=== PATIENT | female | born 1985 | race Caucasian/White ===

== ENCOUNTER 2017-03-22 21:36 | Emergency (ER) | payer MEDICAID, OTHER ==
[~2017-03-22] VITALS: Ht 157.5 cm; Wt 52.2 kg
[~2017-03-22 21:36] MED LIST: AZAT50TA18 PO; HYDR200T PO
--- NOTE | 2017-03-22 22:15 | NUR ---
DR. GARCIA AT BEDSIDE FOR EVAL
[2017-03-22] MEDS ORDERED: IV NORMAL SALINE 1000 ML BAG IV ONE (22:30)
[2017-03-22 23:02] LABS: CREATININE 0.7 mg/dL (0.6-1.3); POTASSIUM 3.4 mmol/L (3.5-5.1)
[2017-03-22 23:07] LABS: BASOPHILS % (AUTO) 0.7 % (0.0-2.0); EOSINOPHILS # (AUTO) 0.1 K/uL (0.0-0.7); EOSINOPHILS % (AUTO) 1.1 % (0.0-7.0); HEMATOCRIT 32.3 % (37-47); HEMOGLOBIN 10.8 G/DL (12.0-16.0); MEAN CORPUSCULAR HEMOGLOBIN 28.8 UUG (27.0-31.0); MEAN CORPUSCULAR HGB CONC 33 g/dL (32.0-37.0); MEAN CORPUSCULAR VOLUME 86.7 FL (81.0-99.0); MONOCYTES # (AUTO) 0.5 K/UL (0.1-1.30); MONOCYTES % (AUTO) 9.3 % (0.0-11.0); NEUTROPHILS # (AUTO) 3.5 K/UL (1.8-8.9); NEUTROPHILS % (AUTO) 68.9 % (38.5-71.5); PLATELET COUNT (AUTO) 220 K/UL (150-450); RED BLOOD CELL COUNT(AUTO) 3.73 MIL/UL (4.2-5.4); WHITE BLOOD COUNT (AUTO) 5.1 K/UL (4.0-11.2)
[2017-03-22 23:19] LABS: BILIRUBIN,DIRECT 0.1 mg/dL (0.0-0.2); BILIRUBIN,TOTAL 0.2 mg/dL (0.2-1.0); TOTAL PROTEIN, SERUM 7.8 g/dL (6.4-8.2)
[2017-03-23] MEDS ORDERED: IV NORMAL SALINE 250 ML IV ONE (00:09)
[2017-03-23] MEDS ORDERED: IOHEXOL 350 100 ML INFUS..BTL ONE (00:09)
--- NOTE | 2017-03-23 01:24 | NUR ---
Patient discharged to home in stable conditon. Written and verbal after care instructions given. Patient verbalizes understanding of instructions. PATIENT LEFT WITH STABLE GAIT. IV DC'D, CATHETER INTACT.
[2017-03-23 01:25] VITALS: BP 99/68
== END 2017-03-23 01:25 | disposition home or self-care (01) ==
LOC: ER 21:37
DX: R07.9 Chest pain, unspecified (principal); M35.1 Other overlap syndromes; M79.7 Fibromyalgia; F17.200 Nicotine dependence, unspecified, uncomplicated; F10.10 Alcohol abuse, uncomplicated; Z88.1 Allergy status to other antibiotic agents; Z79.899 Other long term (current) drug therapy; Z82.49 Family history of ischemic heart disease and other diseases of the circulatory system; Z82.3 Family history of stroke
CPT/HCPCS: 36415; 70030-TC; 71010; 71275; 84703; 85025; 85730; 93005; A4663; J7030; J7050; Q9967

== ENCOUNTER 2018-05-27 22:04 | Emergency (ER) | payer MEDICAID ==
[~2018-05-27] VITALS: Ht 157.5 cm; Wt 68.0 kg
[~2018-05-27 22:04] MED LIST changes: -HYDR200T PO; +HYDR200T81 PO
[2018-05-27] MEDS ORDERED: PANT20TA2 PO (22:30)
[2018-05-27] MEDS ORDERED: CLINDAMYCIN PO (22:30)
[2018-05-27] MEDS ORDERED: LEVAQUIN PO (22:30)
[2018-05-27] MEDS ORDERED: [UNRECOGNIZED DRUG - CODE] PO (22:30)
--- NOTE | 2018-05-27 22:50 | NUR ---
Dr. Corby MERRITT MD at bedside for MSE.
--- NOTE | 2018-05-27 22:59 | NUR ---
Female ball holder accompanied female patient for
[2018-05-27] MEDS ORDERED: VANCOMYCIN IV 1,000 MG in IV DEXTROSE 5% 250 ML IV ONE (23:00)
[2018-05-27] MEDS ORDERED: PIPERACILLIN SODIUM/TAZOBACTAM 3.375 G in IV DEXTROSE 5% 50 ML IV ONE (23:00)
[2018-05-27] MEDS ORDERED: PIPERACILLIN/TAZOBACTAM/D5W 50 ML IV ONE (23:13)
[2018-05-27 23:21] LABS: BASOPHILS % (AUTO) 0.1 % (0.0-2.0); EOSINOPHILS % (AUTO) 0.3 % (0.0-7.0); HEMATOCRIT 29.5 % (31.2-41.9); HEMOGLOBIN 10.2 g/dL (10.9-14.3); LYMPHOCYTES # (AUTO) 0.4 K/uL (20.0-40.0); LYMPHOCYTES % (AUTO) 5.4 % (20.5-51.5); MEAN CORPUSCULAR HGB CONC 35 g/dL (32.3-35.6); MEAN CORPUSCULAR VOLUME 86.6 fL (75.5-95.3); MONOCYTES # (AUTO) 0.7 K/uL (2.0-10.0); MONOCYTES % (AUTO) 9.8 % (0.0-11.0); NEUTROPHILS # (AUTO) 6.1 K/uL (1.8-8.9); NEUTROPHILS % (AUTO) 84.4 % (38.5-71.5); PLATELET COUNT (AUTO) 199 K/uL (179-408); WHITE BLOOD COUNT (AUTO) 7.3 K/uL (3.8-11.8)
[2018-05-27 23:21] LABS: *BILIRUBIN,URIN NEGATIVE (NEGATIVE); *BLOOD, URINE NEGATIVE (NEGATIVE); *CLARITY,URINE SLIGHTLY CLOUDY (CLEAR); *COLOR,URINE YELLOW (YELLOW); *KETONES,URINE NEGATIVE (NEGATIVE); *PROTEIN,URINE NEGATIVE (NEGATIVE); *UROBILINOGEN,URINE 0.2 E.U./dl (NORMAL); LEUKOCYTE ESTERASE ,URINE NEGATIVE (NEGATIVE); NITRITE, URINE NEGATIVE (NEGATIVE); UGLUCOSE NEGATIVE (NEGATIVE)
[2018-05-27 23:35] LABS: BILIRUBIN,DIRECT 0.1 mg/dL (0.0-0.2); BILIRUBIN,TOTAL 0.3 mg/dL (0.2-1.0); CREATININE 0.9 mg/dL (0.6-1.3); POTASSIUM 4.1 mmol/L (3.5-5.1)
[2018-05-27] MEDS ORDERED: METOCLOPRAMIDE HCL 10 MG/2 ML VIAL ONE (23:35)
[2018-05-27] MEDS ORDERED: VANCOMYCIN IV 200 ML ONE (23:42)
[2018-05-27 23:45] LABS: BACTERIA,URINE MODERATE /HPF (NONE SEEN); RBC,URINE 0-3 /HPF (0-3); SQUAMOUS EPITHELIAL CELL,UR MANY /HPF (NONE SEEN); WBC,URINE 0-3 /HPF (0-3)
[2018-05-27] MEDS ORDERED: METOCLOPRAMIDE HCL 10 MG/2 ML VIAL IV ONE (23:45)
[2018-05-27 23:46] LABS: MUCUS,URINE FEW /LPF (0-FEW); RENAL EPITHELIAL CELLS,URINE FEW /LPF (NONE SEEN); TRANSITIONAL EPI CELLS,URINE FEW /LPF (NONE SEEN)
[2018-05-28] MEDS ORDERED: diphenhydrAMINE 50 MG/1 ML VIAL IV ONE
[2018-05-28] MEDS ORDERED: MORPHINE SULFATE 4 MG/1 ML DISP.SYRIN IV ONE
[2018-05-28] MEDS ORDERED: MORPHINE SULFATE 4 MG/1 ML DISP.SYRIN ONE (00:04)
[2018-05-28] MEDS ORDERED: diphenhydrAMINE 50 MG/1 ML VIAL ONE (00:13)
--- NOTE | 2018-05-28 01:03 | NUR ---
IV removed. Catheter intact and site benign. Pressure and 4x4 gauze applied to site. No bleeding noted.
--- NOTE | 2018-05-28 01:16 | NUR ---
Patient discharged to home in stable conditon. Written and verbal after care instructions given. Patient verbalizes understanding of instructions. Pt ambulates out of ER in steady gait. Pt has boyfriend to pick her up & drive her home. All belongings with pt. vSS. NAD noted.
[2018-05-28 01:18] VITALS: BP 116/62
== END 2018-05-28 01:20 | disposition home or self-care (01) ==
LOC: ER 22:06
DX: G89.18 Other acute postprocedural pain (principal); M35.9 Systemic involvement of connective tissue, unspecified; F17.200 Nicotine dependence, unspecified, uncomplicated; Z88.1 Allergy status to other antibiotic agents
CPT/HCPCS: 36415; 80048; 80076; 81001; 83605; 84484; 85025; 85730; 87040 ×2; 87086; 96365; 96367; 96375; 99284; J1200; J2270; J2543; J2765; J3370; 70030-TC; A4663